=== PATIENT | male | born 1960 | race Two or more races ===

== ENCOUNTER 2018-10-11 11:26 | Inpatient (IN) | payer MEDICAID ==
[~2018-10-11] VITALS: Ht 167.6 cm; Wt 72.6 kg
[2018-10-11 11:31] VITALS: Ht 167.6 cm; Wt 72.6 kg
--- NOTE | 2018-10-11 11:38 | NUR ---
PT PLACED IN ROOM 14 FOR EVAL.
--- NOTE | 2018-10-11 11:45 | NUR ---
MSE BY DR. CORREA. PT C/O ABD PAIN X 8 MONTHS, WORSE X 1 DAY, GENERALIZED SHARP CONSTANT PAIN. PT WAS SEEN @ [facility] & HAD EGD 02/11/18 & WAS RE[place] [facility] [place] BOWEL OBSTRUCTION. PT HAS ALSO HAD A COLONOSCOPY & WAS DX W/ DIVERTICULOSIS. PT IS ICELANDIC SPEAKING ONLY. PT STATES HAS VOMITED 7 TIMES IN PAST 24 HOURS, PT HAS HAD SMALL BM BUT STILL FEELS LIKE HE NEEDS TO POOP. NO DISTRESS.
[2018-10-11 11:59] LABS: microscopic required? NO
--- NOTE | 2018-10-11 12:06 | NUR ---
12-LEAD EKG DONE BY RAMAKRISHNA GARCIA.
[2018-10-11 12:15] LABS: CALCIUM 9.1 mg/dL (8.5-10.1); CARBON DIOXIDE 26.3 mmol/L (21-32); CHLORIDE SERUM 100 mmol/L (98-107); CREATININE SERUM 1.1 mg/dL (0.7-1.3); GFR1 > 60 mL/min; GLUCOSE SERUM 115 mg/dL (74-106); POTASSIUM SERUM 4.4 mmol/L (3.5-5.1); SODIUM SERUM 136 mmol/L (136-145)
--- NOTE | 2018-10-11 12:15 | NUR ---
IV BEGUN; FLUIDS BEGUN ORDERED.
[2018-10-11 12:18] LABS: ALBUMIN 3.9 g/dL (3.4-5.0); ALKALINE PHOSPHATASE 53 U/L (46-116); ALT/SGPT 39 U/L (16-63); AST/SGOT 27 U/L (15-37); BILIRUBIN TOTAL 0.68 mg/dL (0.20-1.00); HDL CHOLESTEROL 59 mg/dL (40-60); LIPASE 97 IU/L (73-393); TOTAL PROTEIN, SERUM 7.1 g/dL (6.4-8.2); TRIGLYCERIDES 68 mg/dL (<150)
[2018-10-11 12:20] LABS: BASOPHIL % 0.2 % (0-2); PLATELET COUNT 217 x10^3mcL (130-400)
[2018-10-11 12:24] LABS: CHOLESTEROL 211 mg/dL (<200); CHOLESTEROL/HDL RATIO 3.6
[2018-10-11 12:27] LABS: UA SPECIFIC GRAVITY 1.015 (1.005-1.035); urine erythrocyte NEGATIVE (NEGATIVE)
[2018-10-11 12:30] LABS: FREE T4 0.94 ng/dL (0.76-1.46); FREE THYROXINE INDEX 2.7 ug/dL (1.4-4.5); T4(THYROXINE) 7.2 ug/dL (4.7-13.3)
--- NOTE | 2018-10-11 12:30 | NUR ---
TO CT VIA W/C.
[2018-10-11 13:09] LABS: T3 TOTAL 0.86 ng/mL
--- NOTE | 2018-10-11 15:15 | NUR ---
XRAY AT BEDSIDE FOR NGT PLACEMENT
[2018-10-11 15:42] LABS: MAGNESIUM 2.3 mg/dL (1.8-2.4); PHOSPHOROUS 3.8 mg/dL (2.5-4.9)
--- NOTE | 2018-10-11 16:07 | NUR ---
PT ADMIT TO MS GAVE REPORT TO CHERI
[2018-10-11 16:32] VITALS: BP 126/75
--- NOTE | 2018-10-11 16:42 | NUR ---
RECEIVED PT FROM ER. PT ADMIT FOR BOWEL OBSTRUCTION. PT IS A/O X4, VERBAL RESPONSIVE, ABLE TO TELL WHAT HE NEEDS. LUNG SOUND CLEAR BILATERAL, NO COUGH, NO SOB, PT DENY ANY CHEST PAIN OR DISCOMFORT, BOWEL SOUND PRESENT ALL 4 QUADRANTS, NO DISTENTION, PT C/O MILD ABD PAIN AND DENY ANY N/V AT THIS MOMENT. PT HAS NG TUBE AT RIGHT NARE. HOB IS ELEVATED, PEDAL PULSE PRESENT BOTH FEET, NO EDEMA, IV AT RIGHT AC, NO LEAKING, NO INFILTRATION. ALL ADLS ASSIST, ALL NEED MET, CALL LIGHT IN REACH, WILL CONTINUE TO MONITOR.
--- NOTE | 2018-10-11 17:15 | NUR ---
ASSUMED CARE FR SABINE RN.PT AAO X4.R ANTHONY WITH NGT TO LIS.DENIES ANY PAIN AT THE MOMENT.CALL LIGHT WITHIN REACH.WILL CONTINUE TO MONITOR PT.
--- NOTE | 2018-10-11 17:40 | NUR ---
WENT TO VERIFY PLACEMENT IF IT'S OK TO DO THE SMALL BOWEL THRU,, CONFIRMED OK TO ACCESS NGT.RADIOLOGY AT BEDSIDE.RN PUT THE DYE THRU NGT. PER X-RAY TECH WILL COME EVERY 15 MINS TO TAKE PICTURES.
--- NOTE | 2018-10-11 18:28 | NUR ---
NO SIGNIFICANT CHANGE NOTED.WILL ENDORSE TO NEXT SHIFT.
--- NOTE | 2018-10-11 19:50 | NUR ---
RECEIVED REPORT FROM DAY SHIFT RN. NO SOB ON ROOM AIR. NO C/O PAIN AT THIS TIME. NO DISTRESS NOTED. NGT TO RIGHT NARE, CLAMPED. IV TO RAC, NS INFUSING. SAFETY MEASURES IN PLACE. BED IN LOWEST POSITION. SIDE RAILS UP X2. INSTRUCTED PT TO USE THE CALL LIGHT FOR ASSISTANCE. CALL LIGHT WITHIN REACH.
[2018-10-11 21:12] VITALS: BP 117/67
--- NOTE | 2018-10-12 | NUR ---
SMALL BOWEL FOLLOW THROUGH DONE. NGT TO LOW INTERMITTENT SUCTION.
--- NOTE | 2018-10-12 01:43 | NUR ---
PT C/O ABDOMINAL CRAMPING PAIN 11/25. MEDICATED WITH TORADOL.
--- NOTE | 2018-10-12 03:50 | NUR ---
PT STANDING BY THE NURSES' STATION. ASKED PT IF HE WANTS ATIVAN FOR ANXIETY. PT REFUSED. PT STATES HE IS FEELING OK, JUST WANTED SOMEONE TO TALK TO.
--- NOTE | 2018-10-12 05:25 | NUR ---
PT STATES HE DOES NOT WANT THE IV FLUIDS. 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 DISCONNECTED THE IV. DR FELDER MADE AWARE.
[2018-10-12 05:26] VITALS: BP 123/80
--- NOTE | 2018-10-12 05:30 | NUR ---
PT CHANGED HIS MIND AND NOW WANTS THE IV FLUIDS. IV RECONNECTED. DR FELDER AWARE.
--- NOTE | 2018-10-12 06:46 | NUR ---
PT SLEPT IN INTERVALS THROUGHOUT SHIFT. NO SOB ON ROOM AIR. NO C/O PAIN AT THIS TIME. NG TUBE TO RIGHT NARE, LOW INTERMITTENT SUCTION. 450 ML OF DARK BROWN OUTPUT. SAFETY MEASURES MAINTAINED. CALL LIGHT WITHIN REACH. WILL ENDORSE CONTINUITY OF CARE TO ONCOMING RN.
[2018-10-12 06:58] LABS: BASOPHIL % 0.2 % (0-2); PLATELET COUNT 182 x10^3mcL (130-400); RED CELL DISTRIBUTION WIDTH 13.2 % (11.5-14.5)
[2018-10-12 07:18] LABS: CALCIUM 8.4 mg/dL (8.5-10.1); CHLORIDE SERUM 109 mmol/L (98-107); GFR1 > 60 mL/min; GLUCOSE SERUM 90 mg/dL (74-106); POTASSIUM SERUM 3.9 mmol/L (3.5-5.1); SODIUM SERUM 143 mmol/L (136-145)
--- NOTE | 2018-10-12 07:20 | NUR ---
RECEIVED PT FROM [facility]. PT FOUND RESTING IN BED WITH BOTH EYES CLOSED. NO S/S OF ACUTE DISTRESS. NO SOB ON ROOM AIR. REPORTS MILD ABD. PAIN, DESCRIBES ACHING, RATES 3/10, DECLINED TO PAIN MEDICATION. REPORTS TOLERABLE AT THIS TIME. DENIES N/V. REPORTS MULTIPLE LOOSE STOOLS DURING NIGHT. VOIDS FREELY. DENIES CHEST PAIN. NGT IN TACT TO RIGHT NARE. DRAINING BROWN FLUID TO LOW-INTERMITTENT SUCTION. OUTPUT 100CC IN CANISTER. IV WNL TO RAC, NO REDNESS, NO SWELLING, NO INFILTRATION. PATENT AND FLUSHES WELL. PT HAS BUMP TO HEAD, PT STATES, "IT'S A PIMPLE, I'VE HAD IT FOR ONE YEAR", DENIES PAIN TO BUMB, SKIN WARM, DRY, INTACT, COLOR NORMAL FOR ETHNICITY. ABD. SOFT, FLAT, ACTIVE X4. BED IN LOW POSITION. CALL LIGHT WITHIN REACH. WILL CONT. TO MONITOR.
[2018-10-12 10:29] VITALS: BP 123/76; BP 148/77
--- NOTE | 2018-10-12 10:40 | NUR ---
PT RESTING IN BED WITH BOTH EYES CLOSED. NO S/S OF ACUTE DISTRESS. NO N/V. NGT IN TACT WITH BROWN DRAINAGE, TO LOW INTERMITTENT SUCTION. REPORTS MILD ABD. PAIN, RATES 3/10, TOLERABLE, DECLINED TO PAIN MEDICATION. NO SOB ON ROOM AIR. NO CHEST PAIN. CALM/COOPERATIVE. BED IN LOW POSITION. CALL LIGHT WITHIN REACH. WILL CONT. TO MONITOR.
--- NOTE | 2018-10-12 11:15 | NUR ---
LATE ENTRY: NGT REMOVED PER DR. KAMARA ORDER BY [facility] STUDENT YANET WITH INSTRUCTOR. PT TOLERATED PROCEDURE WELL. NO N/V. NO SOB ON ROOM AIR. NO CHEST PAIN. CALM/COOPERATIVE. OUTPUT FROM NGT 375CC BROWN. IV WNL, IV FLUIDS FLOWING. BED IN LOW POSITION. CALL LIGHT WITHIN REACH. WILL CONT. TO MONITOR.
[2018-10-12] MEDS ORDERED: PRI20 PO (13:26)
[2018-10-12] MEDS ORDERED: ONDANSETRON4 M3 PO (13:26)
--- NOTE | 2018-10-12 13:42 | NUR ---
PT SITTING IN CHAIR AT SIDE OF BED. AA/OX4. TOLERATED FULL LIQUID DIET WELL. DENIES N/V. NO ABD PAIN AT THIS TIME. NO SOB ON ROOM AIR. CALM/COOPERATIVE. IV WNL, IV FLUIDS FLOWING. CALL LIGHT WITHIN REACH. WILL CONT. TO MONITOR.
[2018-10-12 14:02] VITALS: BP 123/76
--- NOTE | 2018-10-12 15:09 | NUR ---
PT BEING DISCHARGED TO HOME. AWAKE, ALERT, ORIENTED X4. NO S/S OF ACUTE DISTRESS. DENIES ABD. PAIN. NO N/V. NO BARNES. NO CHILLS. NO FEVER. DENIES PAIN. PT PASSING GAS. BM X3 TODAY. LOOSE. TOLERATING FULL LIQUID DIET WELL. DISCHARGE EDUCATION PROVIDED TO PATIENT. INSTRUCTED TO FOLLOW UP WITH PCP WITHIN ONE WEEK. PT VERBALIZED UNDERSTANDING. PRESCRIPTION AND WORK NOTE PROVIDED TO PATIENT. IV REMOVED FROM RAC, CATHETER IN TACT. PRESSURE APPLIED. SITE WNL. BELONGINGS WITH PATIENT. ESCORTED TO DISCHARGE LOBBY BY [facility]. AMBULATORY WITH FULL ROM, GAIT STEADY.
== END 2018-10-12 15:15 | disposition home or self-care (01) | DRG 244 ==
LOC: ED 11:26 → MU 14:54
PROVIDERS: Specialist; ADMIT Internal Medicine
DX: K57.90 Diverticulosis of intestine, part unspecified, without perforation or abscess without bleeding (principal); K56.7 Ileus, unspecified; E78.5 Hyperlipidemia, unspecified; Z68.25 Body mass index [BMI] 25.0-25.9, adult
CPT/HCPCS: 83880; 84439; A9698; J0694; J1885; J7030; Q0092; Q9967

== ENCOUNTER 2018-11-10 07:47 | Emergency (ER) | payer MEDICAID ==
[~2018-11-10] VITALS: Ht 167.6 cm; Wt 69.4 kg
[~2018-11-10 07:47] MED LIST: ONDANSETRON4 M3 PO; PRI20 PO
[2018-11-10 07:59] VITALS: Ht 167.6 cm; Wt 69.4 kg
[2018-11-10 08:49] LABS: BASOPHIL % 0.3 % (0-2); PLATELET COUNT 158 x10^3mcL (130-400); RED CELL DISTRIBUTION WIDTH 13.6 % (11.5-14.5)
[2018-11-10 08:57] LABS: CALCIUM 9.2 mg/dL (8.5-10.1); CARBON DIOXIDE 26.6 mmol/L (21-32); CHLORIDE SERUM 103 mmol/L (98-107); GFR1 > 60 mL/min; GLUCOSE SERUM 118 mg/dL (74-106); POTASSIUM SERUM 3.9 mmol/L (3.5-5.1); SODIUM SERUM 139 mmol/L (136-145)
[2018-11-10 09:02] LABS: ALBUMIN 4.1 g/dL (3.4-5.0); ALKALINE PHOSPHATASE 60 U/L (46-116); ALT/SGPT 31 U/L (16-63); AST/SGOT 25 U/L (15-37); BILIRUBIN TOTAL 0.5 mg/dL (0.20-1.00); LIPASE 85 IU/L (73-393); TOTAL PROTEIN, SERUM 7.6 g/dL (6.4-8.2)
[2018-11-10 09:10] LABS: microscopic required? YES; urine erythrocyte NEGATIVE (NEGATIVE)
[2018-11-10 14:36] VITALS: BP 113/89
== END 2018-11-10 14:36 | disposition home or self-care (01) ==
LOC: ED 07:47
PROVIDERS: Emergency Medicine
DX: K56.7 Ileus, unspecified (principal); R10.84 Generalized abdominal pain; Z87.19 Personal history of other diseases of the digestive system
CPT/HCPCS: A9698; J1885; J2405; J7030; Q9967

== ENCOUNTER 2018-11-11 16:31 | Emergency (ER) | payer MEDICAID ==
[~2018-11-11] VITALS: Ht 167.6 cm; Wt 71.7 kg
[2018-11-11 16:41] VITALS: Ht 167.6 cm; Wt 71.7 kg
[2018-11-11 17:53] VITALS: BP 121/72
== END 2018-11-11 17:53 | disposition home or self-care (01) ==
LOC: ED 16:31
DX: K56.7 Ileus, unspecified (principal)

== ENCOUNTER 2019-02-24 10:06 | Inpatient (IN) | payer MEDICAID ==
[~2019-02-24] VITALS: Ht 167.6 cm; Wt 73.7 kg
[2019-02-24 10:12] VITALS: Ht 167.6 cm; Wt 73.7 kg
--- NOTE | 2019-02-24 10:19 | NUR ---
PER PT HE HAS HAD GENERALIZED ABDOMINAL PAIN FOR ONE DAY. PT STS THAT HIS LAST BOWEL MOVEMENT TWO HOURS AGO. PT STS THAT HE HAS SOME NAUSEA BUT NOT VOMITING. UPON PALPATION PT HAS TENDERNESS TO ALL 4 QUAD. PT DENIES ANY FEVERS, BODY ACHES. PT STS THAT HE FEELS THAT HE HAS PRESSURE IN HIS STOMACH. PT IS ALERT AND ORIENTED, SEPAKING IN CLEAR AND FULL SENTENCES. PT DENIES ANY BLOOD IN STOOL OR URINE. VSS. WILL CONTINUE TO MONITOR. RESP E/U/
[2019-02-24 10:30] LABS: microscopic required? NO
--- NOTE | 2019-02-24 10:36 | NUR ---
PT TAKEN TO XRAY BY WHEELCHAIR.
[2019-02-24 10:41] LABS: BASOPHIL % 0.2 % (0-2); PLATELET COUNT 234 x10^3mcL (130-400)
[2019-02-24 10:42] LABS: UA SPECIFIC GRAVITY 1.015 (1.005-1.035); urine erythrocyte NEGATIVE (NEGATIVE)
[2019-02-24 10:42] LABS: RED CELL DISTRIBUTION WIDTH 17.2 % (11.5-14.5)
[2019-02-24 10:55] LABS: CALCIUM 9.7 mg/dL (8.5-10.1); CARBON DIOXIDE 23.6 mmol/L (21-32); CHLORIDE SERUM 101 mmol/L (98-107); GFR1 > 60 mL/min; GLUCOSE SERUM 137 mg/dL (74-106); POTASSIUM SERUM 4.4 mmol/L (3.5-5.1); SODIUM SERUM 137 mmol/L (136-145)
--- NOTE | 2019-02-24 11:03 | NUR ---
PT RETURNED FROM CT. PT AMBULATED TO [facility] WITH STEADY GAIT. NO DISTRESS NOTED. PT STS ABDOMINAL PAIN IS NOW 09/25. DR. STEVENS INFORMED. VSS. RESP E/U. WILL CONTINUE TO MONITOR.
--- NOTE | 2019-02-24 11:05 | NUR ---
I RECEIVED A CALL REGARDING THE CR FINDINGS I INFORMED DR STEVENS HE IS AWARE OF BOWEL OBSTRUCTION.
[2019-02-24 11:07] LABS: ALBUMIN 4.2 g/dL (3.4-5.0); ALKALINE PHOSPHATASE 59 U/L (46-116); ALT/SGPT 49 U/L (16-63); AST/SGOT 42 U/L (15-37); BILIRUBIN TOTAL 0.6 mg/dL (0.20-1.00); LIPASE 113 IU/L (73-393); TOTAL PROTEIN, SERUM 7.8 g/dL (6.4-8.2)
--- NOTE | 2019-02-24 11:52 | NUR ---
NG PLACEMENT LEFT NARE. PT TOLERATED WELL. KUB ORDRED FOR PALCEMENT CONFIRMATION.
[2019-02-24] MEDS ORDERED: AMITIZA8 MC1 (12:38)
--- NOTE | 2019-02-24 12:38 | NUR ---
REPORT GIVEN TO JOHANNY JUAREZ TO ASSUME CARE OF PT.
--- NOTE | 2019-02-24 13:04 | NUR ---
ADJUSTMENT OF NG. CEHST XRAY ORDRED FOR PLACEMENT. PT TOLERATED WELL. PT PLACED ON SUCTION. VSS. NO DISTRESS NOTED. WILL CONTINUE TO MONITOR.
--- NOTE | 2019-02-24 13:39 | NUR ---
RECEIVED PT FROM ED [facility]IA [facility] [facility], CAME IN DUE TO ABDOMINAL PAIN. AAOX4. DENIES HEADACHE/DIZZINESS. NO SOB NOTED, LUNG SOUNDS CTA. DENIES CHEST PAIN/PRESSURE. DENIES ABDOMINAL PAIN/NAUSEA/VOMITING/BLOATING AT THIS TIME. BOWEL SOUNDS HYPOACTIVE. ABLE TO PASS GAS, HAD FORMED BM TODAY. ABDOMEN IS SOFT BUT DISTENDED. W/ LEFT NARE, NGT (CLAMPED). VOIDS. IV SITE PATENT AND INTACT. SIDE RAILS UPX2. CALL LIGHT ON REACH. PRIMARY NURSE JOHANNY AT BEDSIDE FOR CONTINUITY OF CARE
[2019-02-24 14:01] VITALS: BP 116/75
--- NOTE | 2019-02-24 14:32 | NUR ---
NASIR JIMENEZ NOTIFIED THAT NGT THAT WAS PLACED IN ER WAS STILL NOT IN PLACE. PERMISSION GIVEN BY TONY TO INSERT NEW NGT AND ORDER KUB TO CONFIRM PLACEMENT. NGT PULLED OUT AND NEW NGT REINSERTED TO RIGHT NARE. PATIENT TOLERATED WELL. KUB ORDERED. PATIENT APPEARS TO BE RESTING WELL IN BED AT THIS TIME. INSTRUCTED TO USE CALL LIGHT FOR ASSIST. WILL CONTINUE TO MONITOR. PATIENT DENIES ANY N/V OR PAIN.
--- NOTE | 2019-02-24 16:00 | NUR ---
KUB RESULTS RECEIVED. NASIR JIMENEZ NOTIFIED. NEW ORDER RECEIVED TO PLACE NGT TO LOW INTERMITTENT SUCTION.
[2019-02-24 16:41] VITALS: BP 117/72
--- NOTE | 2019-02-24 17:46 | NUR ---
DR COLEMAN REQUESTING THAT AISHA ABRASIVE BAND WINDER BE MADE AWARE THAT PATIENT MAY HAVE A ALCOHOL HX, AND TO ASK DESIREEE IF A ETOH PROTOCOL NEEDS TO BE STARTED. AISHA ABRASIVE BAND WINDER CALLED AND PER AISHA BEST AT THIS TIME A ETOH PROTOCOL DOES NOT NEED TO BE STARTED, BUT WANTS PATIENT TO BE WATCHED FOR ANY TREMORS OR OTHER WITHDRAWL SYMPTOMS.
--- NOTE | 2019-02-24 18:00 | NUR ---
I HAVE REVIEWED THE DATA COLLECTION BY CAR DESIGNER (NAME): ENTERED ON (DATE/TIME): I CONCUR WITH THE DATA AND ANY EXCEPTIONS OR COMMENTS ARE LISTED BELOW: PATIENT'S PLAN OF CARE WAS DISCUSSED AND REVIEWED WITH CAR DESIGNER:JOHANNY YANG
--- NOTE | 2019-02-24 18:18 | NUR ---
PATIENT REMAINS IN BED NGT TO LOW INTERMITTENT SUCTION. DR COLEMAN WAS INTO SEE PATIENT. PATIENT C/O HAVING MILD ABD PAIN 1-3 ON THE PAIN SCALE. MEDICATED WITH TORADOL IV BY ALEX JUAREZ AT THIS TIME. WILL MONITOR FOR EFFECT. PATIENT REMAINS NPO. CALL LIGHT WITHIN REACH.
--- NOTE | 2019-02-24 18:19 | NUR ---
PT C/O PAIN TO ABD AT 4/10, MEDICATED WITH NORCO PO PER EMAR. WILL CONT TO MONITOR.
--- NOTE | 2019-02-24 19:05 | NUR ---
CARE ASSUMED FROM OUTGOING SHEET CUTTING OPERATOR. PT RESTING COMFORTABLY IN BED. NO ACUTE DISTRESS NOTED. EVEN AND UNLABORED RESPIRATIONS ON RA. MEDSURG PT. ABD PAIN RESOLVING AT TIME, MEDICATION EFFECTIVE. NGT TO INTERMITTENT SUCTION, PATENT AND INTACT. IV PATENT AND INTACT RUNNING FLUIDS PER EMAR. BED IN LOWEST POSITION. SIDE RAILS UPX2. CALL LIGHT WITHIN REACH. WILL CONTINUE TO MONITOR.
[2019-02-24 20:26] VITALS: BP 117/65
--- NOTE | 2019-02-25 00:22 | NUR ---
PT RESTING COMFORTABLY IN BED. NO ACUTE DISTRESS NOTED. EVEN AND UNLABORED RESPIRATIONS ON RA. IV PATENT AND INTACT RUNNING FLUIDS PER EMAR. NGT PATENT AND INTACT TO LIS. NO C/O OF ABD PAIN AT THIS TIME. BED IN LOWEST POSITION. SIDE RAILS UPX2. CALL LIGHT WITHIN REACH. WILL CONTINUE TO MONITOR.
[2019-02-25 04:45] VITALS: BP 122/74
[2019-02-25 06:22] LABS: BASOPHIL % 0.4 % (0-2); PLATELET COUNT 185 x10^3mcL (130-400)
--- NOTE | 2019-02-25 06:23 | NUR ---
PT SLEPT COMFORTABLY IN INTERVALS THROUGHOUT THE SHIFT. NO ACUTE CHANGES NOTED. EVEN AND UNLABORED RESPIRATIONS ON RA. NGT IN PLACE TO LIS, 25ML OUTPUT NOTED. PT C/O DISCOMFORT DUE TO NGT, NO C/O OF ABD PAIN DURING THE SHIFT. IV PATENT AND INTACT RUNNING FLUIDS PER EMAR. ALL NEEDS TENDED TO AND MET. ALL SCHEDULED MEDICATIONS GIVEN. BED IN LOWEST POSITION. SIDE RAILS UXP2. CALL LIGHT WITHIN REACH. WILL ENDORSE TO ONCOMING SHIFT.
[2019-02-25 06:24] LABS: RED CELL DISTRIBUTION WIDTH 17.3 % (11.5-14.5)
[2019-02-25 06:45] LABS: CALCIUM 8.4 mg/dL (8.5-10.1); CARBON DIOXIDE 28.4 mmol/L (21-32); CHLORIDE SERUM 108 mmol/L (98-107); CREATININE SERUM 1.2 mg/dL (0.7-1.3); GFR1 > 60 mL/min; GLUCOSE SERUM 105 mg/dL (74-106); POTASSIUM SERUM 4.6 mmol/L (3.5-5.1); SODIUM SERUM 142 mmol/L (136-145)
--- NOTE | 2019-02-25 07:50 | NUR ---
OX4. NO SOB AT RM AIR. DENIES CP; REPORTS EPIG PAIN 1/10, TOLERABLE AND REQUIRE NO MED AT THIS TIME, DENIES N/V OR DIARRHEA. NGT TO LIS, MINIMAL CLEAR DRAIN ON THE TUBE, NOTED ABOUT 150 ML. WHITE/CLOUDY DRAIN ON THE CONTAINER. NGT IS SECURED. IVF D5NS AT 80ML/HR INFUSING VIA RAC; SITE PATENT AND WITHOUT INFILTRATION. NPO WITH VERBAL UNDERSTANDING. NSG ASSESSMENT DONE; WILL CONTINUE TO MONITOR STATUS.
[2019-02-25 09:01] VITALS: BP 123/79
--- NOTE | 2019-02-25 10:12 | NUR ---
NGT TO RT ANTHONY DC'D PER DR. COLEMAN ORDER; DRAIN IS ONLY NOTED ON THE TUBING WHICH IS MINIMAL AND CLEAR. OFFERD SIPS OF WATER AND ICE CHIPS PO; PT TOLERATED WELL. PT ALSO ENCOURAGE TO AMBULATE. WITH VERBAL UNDERSTANDING.
--- NOTE | 2019-02-25 13:30 | NUR ---
PT IS AMBULATING IN THE HALLWAY; TOLERATING ACTIVITY; AISHA HAS BEEN MADE AWARE OF DR. COLEMAN'S ORDER TO DC NGT MAY HAVE SML AMOUNTS OF CLEARS IF PT TOLERATES ICE CHIPS/SIPS.
[2019-02-25 17:40] VITALS: BP 103/70
--- NOTE | 2019-02-25 18:04 | NUR ---
PT IS AMBULATING AND DENIES ABD PAIN, N/V. TOLERATING ICE CHIPS AND SIPS OF WATER. NO NEW ACUTE CHANGES IN STATUS.
--- NOTE | 2019-02-25 19:19 | NUR ---
AWAKE AND ALERT, ORIENTED TO NAME, PLACE, TIME AND SITUATION. SPEECH CLEAR AND APPROPRIATE. WATCHING TV AT THIS TIME. DENIES HAVING ABD PAIN OR NAUSEA. HAS BEEN TOLERATING ICE CHIPS AND SMALL SIPS OF WATER WELL. HAS BEEN AMBULATING IN HALLWAY. ACTIVE BOWEL SOUNDS. IVF OF D5 NS INFUSING WELL
--- NOTE | 2019-02-25 19:45 | NUR ---
INFORMED DR. MELVIN PT HAS BEEN TOLERATING ICE CHIPS AND SIPS OF CLEAR LIQUID.
[2019-02-25 19:53] VITALS: BP 110/65
--- NOTE | 2019-02-25 20:39 | NUR ---
ENCOURAGED TO AMBULATE. STATED HAS BEEN PASSING GAS.
--- NOTE | 2019-02-26 01:10 | NUR ---
EYES CLOSED, BREATHING EVEN AND UNLABORED ON ROOM AIR. CALL LIGHT WITHIN EASY REACH. IVF INFUSING WELL.
[2019-02-26 04:35] VITALS: BP 113/69
--- NOTE | 2019-02-26 06:28 | NUR ---
EYES CLOSED, EASILY AWAKENED. SLEPT THROUGH MOST OF SHIFT. NOTED NEW ORDER FOR CLEAR LIQUID DIET. NO COMPLAINTS OF ABD PAIN OR NAUSEA DURING SHIFT. IVF INFUSING WELL.
[2019-02-26 06:45] LABS: CALCIUM 8.7 mg/dL (8.5-10.1); CARBON DIOXIDE 28.6 mmol/L (21-32); CHLORIDE SERUM 109 mmol/L (98-107); CREATININE SERUM 1.1 mg/dL (0.7-1.3); GFR1 > 60 mL/min; GLUCOSE SERUM 97 mg/dL (74-106); POTASSIUM SERUM 4.6 mmol/L (3.5-5.1); SODIUM SERUM 143 mmol/L (136-145)
[2019-02-26 07:10] LABS: BASOPHIL % 0.6 % (0-2); PLATELET COUNT 175 x10^3mcL (130-400)
[2019-02-26 07:11] LABS: RED CELL DISTRIBUTION WIDTH 17.3 % (11.5-14.5)
--- NOTE | 2019-02-26 07:12 | NUR ---
EYES CLOSED, EASILY AWAKENED. BREATHING UNLABORED. ENDORSED TO NURSE ANITHA
--- NOTE | 2019-02-26 07:20 | NUR ---
RECEIVED PT FROM CARLENE RN. PT AA/OX4. SPEAKS MALAY. NO S/S OF ACUTE DISTRESS. NO CHEST PAIN. MED-SURG. NO SOB ON ROOM AIR. DENIES ABD. PAIN. DENIES N/V. REPORTS TOLERATING CLEAR LIQUID DIET WELL. REPORTS PASSING GAS RECTALLY AND ORALLY. VOIDS FREELY. PT ENCOURAGED TO AMBULATE PER PHYSICIAN ORDER. PT VERBALIZED UNDERSTANDING. IV WNL TO RAC, NO REDNESS, NO SWELLING, NO INFILTRATION. PATENT AND FLUSHES WELL. IV FLUIDS FLOWING. BED IN LOW POSITION. CALL LIGHT WITHIN REACH. SIDE RAILS UP X2. INSTRUCTED TO USE CALL LIGHT TO CALL FOR ASSISTANCE PRN. VERBALIZED UNDERSTANDING. WILL CONTINUE TO MONITOR.
[2019-02-26 07:50] VITALS: BP 125/68
--- NOTE | 2019-02-26 09:28 | NUR ---
PT AMBULATING IN HALLWAYS. TOLERATING ACTIVITY WELL. NO S/S OF ACUTE DISTRESS. NO S/S OF PAIN. NO ABD. PAIN. NO N/V. IV FLUIDS FLOWING. WILL CONTINUE TO MONITOR.
[2019-02-26 13:06] VITALS: BP 125/68
--- NOTE | 2019-02-26 14:44 | NUR ---
PT TAKEN TO LOBBY BY JORDAN SALGUERO. PT AWAKE, ALERT, ORIENTED X4. NO S/S OF ACUTE DISTRESS. AMBULATORY WITH FULL ROM, GAIT STEADY. DENIES ABD. PAIN. HAD BM X 2 TODAY, BROWN/FORMED. TOLERATED REGULAR DIET WELL FOR LUNCH. DENIES N/V. NO ABD. PAIN AFTER EATING. PASSING GAS. NO SOB ON ROOM AIR. NO CHEST PAIN. DISCHARGE EDUCATION PROVIDED TO PATIENT. INSTRUCTED TO FOLLOW UP WITH PCP WITHIN ONE WEEK. PT VERBALIZED UNDERSTANDING. IV WNL TO RAC, IV REMOVED, CATHETER IN TACT. PRESSURE APPLIED. BELONGINGS WITH PATIENT.
== END 2019-02-26 14:44 | disposition home or self-care (01) | DRG 247 ==
LOC: ED 10:06 → MU 11:35
PROVIDERS: Emergency Medicine; ADMIT Internal Medicine
DX: K56.609 Unspecified intestinal obstruction, unspecified as to partial versus complete obstruction (principal); Z68.25 Body mass index [BMI] 25.0-25.9, adult
CPT/HCPCS: G0378; J1885; J2405; J3010; J3490; J7030; J7042; Q0092

== ENCOUNTER 2019-04-04 10:05 | Inpatient (IN) | payer MEDICAID ==
[~2019-04-04] VITALS: Ht 172.7 cm; Wt 71.7 kg
[~2019-04-04 10:05] MED LIST changes: +AMITIZA8 MC1
[2019-04-04 10:07] VITALS: Ht 172.7 cm; Wt 71.7 kg
--- NOTE | 2019-04-04 10:10 | NUR ---
PLACED IN BED 4 FOR EVAL.
--- NOTE | 2019-04-04 10:14 | NUR ---
PT COMESD TO ER WITH C/O GENERALIZED ABDOMINAL PAIN WITH NAUSEA AFTER EATING FISH TACOS YESTERDAY. STATES HE'S BEEN HAVING SIMILIAR ISSUES FOR THELAST MONTH AND HAS BEEN COMING HERE, STATES HE'S BEEN TOLD HE HAS AN OBSTRUCTION. LAST BM THIS AM, REGULAR. POSITIVE DYSURIA. DENIES HEMATURIA, FEVERS, CHILLS. PT INFORMED TO PROVIDE URINESPECIMEN. WILL CONT TOMONITOR.
--- NOTE | 2019-04-04 10:59 | NUR ---
DR CHAVES IN ROOM FOR EXAM
[2019-04-04 11:18] LABS: BASOPHIL % 0.2 % (0-2); PLATELET COUNT 193 x10^3mcL (130-400)
[2019-04-04 11:25] LABS: CALCIUM 8.7 mg/dL (8.5-10.1); CARBON DIOXIDE 25.4 mmol/L (21-32); CHLORIDE SERUM 105 mmol/L (98-107); GFR1 > 60 mL/min; GLUCOSE SERUM 109 mg/dL (74-106); SODIUM SERUM 141 mmol/L (136-145)
--- NOTE | 2019-04-04 11:25 | NUR ---
MEDICATED ORDERED, CALL LIGHT STORMY CHRISTIANSON. SAFETY PRECAUTIONS IN PLACE.
--- NOTE | 2019-04-04 11:25 | NUR ---
PT GOING TO CT SCAN VIA [facility].
[2019-04-04 11:29] LABS: ALBUMIN 3.9 g/dL (3.4-5.0); ALKALINE PHOSPHATASE 65 U/L (46-116); ALT/SGPT 28 U/L (16-63); AST/SGOT 25 U/L (15-37); BILIRUBIN TOTAL 0.5 mg/dL (0.20-1.00); LIPASE 74 IU/L (73-393); TOTAL PROTEIN, SERUM 7.1 g/dL (6.4-8.2)
[2019-04-04 11:30] LABS: RED CELL DISTRIBUTION WIDTH 18.3 % (11.5-14.5)
--- NOTE | 2019-04-04 13:00 | NUR ---
PT WITH EYEW CLOSED, IN NAD. RESP EVEN AND UNLABORED, ON RA @96%. WAITING FOR DIPSO. NO NAUSEA OR VOMITING WHILE HERE IN ER. CURRENTLY DENIES ANY PAIN AT THIS TIME.
--- NOTE | 2019-04-04 13:28 | NUR ---
REPORT GIVEN TO DARLIN RN, UPDATED ON STATUS, LABS AND VITALS. PT STABLE FOR TRANSFER AT THIS TIME. PT DENIES ANY ABDOMINAL PAIN AT THIS TIME AND STATES HE'S HUNGRY. DOES NOT WANT NGT AT THIS TIME. ER MADE AWARE.
[2019-04-04 14:33] VITALS: BP 126/80
--- NOTE | 2019-04-04 14:35 | NUR ---
RECEIVED PT FROM ED [facility]IA [facility]. ORIENTED PT TO ROOM AND SURROUNDINGS. IV NOTED TO LAC PATENT AND INTACT. INSTRUCTED PT ON THE USE OF CALL LIGHT FOR ASSISTANCE. BED IN LOWEST POSITION AND SIDE RAILS UPX2
--- NOTE | 2019-04-04 16:29 | NUR ---
TAKE OVER THIS PATIENT FROM RN SURU. SEEN RESTING WITH EYES CLOSED. BREATHING E/U ON ROOM AIR. IVF D5 1/2NS AT 100ML/HR TO LAC INFUSING WELL. CALL LIGHT NOTED PLACED WITHIN EASY REACH, SIDERAILS UP X2.
[2019-04-04 16:35] VITALS: BP 113/68
--- NOTE | 2019-04-04 18:22 | NUR ---
DENIES PAIN AT THIS TIME. ABDN SOFT AND FLAT STATED HAD LARGE BM THIS AM. PLAN OF CARE DISCUSSED, UPDATED TO PATIENT AND HIS FAMILY AT BEDSIDE. KEPT NPO.
--- NOTE | 2019-04-04 19:10 | NUR ---
RECEIVED PT LAYING IN BED, NO ACUTE DISTRESS OBSERVED, DENIES PAIN OR DISCOMFORT AT THIS TIME. ABD ROUND AND SOFT, NONTENDER WITH ACTIVE BOWEL SOUNDS, DENIES N/V/D, LAST BM WAS EARLIER THIS MORNING, PT C/O INTERMITTENT ABD PAIN. AA/OX4, ABLE TO MAKE NEEDS KNOWN, SPEECH CLEAR AND APPROPRIATE. MED-SURG, NO TELE, NO CP. PULSES PALPABLE AND EQUAL THROUGHOUT, NO EDEMA. BREATHING ON RA, EVEN AND UNLABORED, NO SOB OR DYSPNEA OBSERVED. VOIDS URINE FREELY WITH BRP. AMBULATORY AND ABLE TO REPOSITION SELF IN BED. IV TO LAC DRY, PATENT, INTACT, AND INFUSING IVF WELL, NO S&S PHLEBITIS OR INFILTRATION NOTED. COMFORT AND SAFETY MEASURES IN PLACE. ALL NEEDS ASSESSED AND ATTENDED TO. CALL LIGHT WITHIN REACH. WILL CONTINUE TO MONITOR
[2019-04-04 20:43] VITALS: BP 111/64
--- NOTE | 2019-04-05 05:16 | NUR ---
NO SIGNIFICANT CHANGES TO REPORT, PT COMPLIED WITH NURSING CARE TRHOUGHOUT THE SHIFT WITH NO ACUTE EVENTS OVERNIGHT. NO ACUTE DISTRESS OBSERVED AT THIS TIME. PT LAYING IN BED, BREATHING EVEN AND UNLABORED. COMFORT AND SAFETY MEASURES MAINTAINED. ALL NEEDS ASSESSED AND ATTENDED TO. CALL LIGHT WITHIN REACH. WILL CONTINUE TO MONITOR AND ENDORSE CARE TO DAY SHIFT NURSE.
[2019-04-05 05:36] VITALS: BP 115/83
[2019-04-05 06:22] LABS: BASOPHIL % 0.5 % (0-2); PLATELET COUNT 149 x10^3mcL (130-400)
[2019-04-05 06:29] LABS: RED CELL DISTRIBUTION WIDTH 18.2 % (11.5-14.5)
[2019-04-05 06:38] LABS: CALCIUM 7.6 mg/dL (8.5-10.1); CARBON DIOXIDE 27.9 mmol/L (21-32); CHLORIDE SERUM 110 mmol/L (98-107); CREATININE SERUM 1.1 mg/dL (0.7-1.3); GFR1 > 60 mL/min; GLUCOSE SERUM 101 mg/dL (74-106); POTASSIUM SERUM 3.9 mmol/L (3.5-5.1); SODIUM SERUM 144 mmol/L (136-145)
--- NOTE | 2019-04-05 07:30 | NUR ---
RECEIVED REPORT FROM NIGHT NURSE, PT LAYING IN BED A&OX4, PT DENIES ANY PAIN AT THIS TIME, ASSESED AND DOCUMENTED. STABLE AND NO DISTRESS NOTED. SAFETY PRECAUTIONS IN PLACE, CALL LIGHT WITHIN REACH, BED IN LOW POSITION ALL QUESTIONS AND CONCERNS ADDRESSED. WILL CONTINUE TO MONITOR.
--- NOTE | 2019-04-05 07:30 | NUR ---
ORTHOPEDICS PEDIATRIC PHYSICIAN REPORT FROM PT LAYING IN BED AWAKE AND ALERT. PT IN NO APPARENT DISTRESS AT THIS TIME, PT RATES PAIN 0/10. PT INSTRUCTED TO USE CALL FOR ANY NEEDS, BED IN LOW POSITION ALL NEEDS MET AT THIS TIME.
--- NOTE | 2019-04-05 08:45 | NUR ---
PT SITTING UP IN CHAIR WATCHING TV. IN NO APPARENT DISTRESS AT THE TIME.
[2019-04-05 09:03] VITALS: BP 116/72
--- NOTE | 2019-04-05 10:00 | NUR ---
PT AMBULATING IN HALLWAY. IN NO APPARENT DISTRESS.
[2019-04-05 10:22] LABS: microscopic required? NO
[2019-04-05 10:28] LABS: urine erythrocyte NEGATIVE (NEGATIVE)
--- NOTE | 2019-04-05 11:01 | NUR ---
PT LAYING IN BED SUPINE. NO PAIN NOTED, ALL NEEDS AND CONCERNS MET AT THIS TIME.
--- NOTE | 2019-04-05 12:20 | NUR ---
PT AMBULATING IH HALLWAY. NO DISTRESS NOTED.
--- NOTE | 2019-04-05 12:23 | NUR ---
PER DR ORDER OF CLEAR LIQUID DIET GAVE APPLE JUICE AND JELLO. PT INFORMED THAT HE WILL BE STAYING OVER NIGHT FOR OBSERVATION. PT VERBALIZED UNDERSTANDING.
--- NOTE | 2019-04-05 12:45 | NUR ---
SPECIMEN PREPARATION ASSISTANT AT BEDSIDE.
--- NOTE | 2019-04-05 13:00 | NUR ---
PT SITTING UP IN BED EATING LUNCH. IN NO APPARENT PAIN. TOLERATING THE FLUID WELL.
--- NOTE | 2019-04-05 13:30 | NUR ---
GENERAL SURGEON AT BEDSIDE.
--- NOTE | 2019-04-05 14:13 | NUR ---
Discount pharmacy card and list to low cost medical clinics given to patient by Zahira.
--- NOTE | 2019-04-05 14:18 | NUR ---
PT LYING IN BED RESTING. NO DISTRESS NOTED.
--- NOTE | 2019-04-05 15:29 | NUR ---
PT AMBULATING IN HALLWAY. NO PAIN OR DISTRESS NOTED.
--- NOTE | 2019-04-05 15:45 | NUR ---
PT LAYING IN BED WITH AT BEDSIDE WATCHING TV. NO PAIN NOTED. INSTRUCTED TO USE CALL LIGHT FOR ANY NEEDS.
[2019-04-05 17:15] VITALS: BP 103/64
--- NOTE | 2019-04-05 18:19 | NUR ---
PT TOLERATED DINNER WELL. NO DISTRESS NOTED. PT LAYING IN BED WITH AT BEDSIDE. IN NO APPARENT DISTRESS.
--- NOTE | 2019-04-05 19:30 | NUR ---
RECEIVED REPORT FROM DAY SHIFT RN. PT RESTING WITH EYES CLOSED. AROUSABLE WITH VERBAL STIMULI. ORIENTED X4. NO SOB NOTED ON ROOM AIR. NO C/O N/V/PAIN AT THIS TIME. IV TO LAC, D5NS INFUSING. SAFETY MEASURES IN PLACE. BED IN LOWEST POSITION. SIDE RAILS UP X2. INSTRUCTED PT TO USE THE CALL LIGHT IF ASSISTANCE IS NEEDED. CALL LIGHT WITHIN REACH.
--- NOTE | 2019-04-05 19:31 | NUR ---
REPORT GIVEN TO NOC SHIFT NURSE AT BEDSIDE. PT LYING IN BED ASLLEP AND AROUSABLE. ALL CARE ENDORSED. IV PATENT AND INTACT RUNNING AT 100ML/HR. ALL CONCERNS AND QUESTIONS ANSWERED. NO DISTRESS NOTED.
[2019-04-05 20:42] VITALS: BP 92/57
[2019-04-06 05:25] VITALS: BP 109/63
--- NOTE | 2019-04-06 05:32 | NUR ---
PT RESTED AT LONG INTERVALS THROUGHOUT SHIFT. BREATHING EVEN AND UNLABORED ON ROOM AIR. NO C/O PAIN. NO ACUTE CHANGES NOTED. NO DISTRESS NOTED. SAFETY MEASURES MAINTAINED. ALL NEEDS ATTENDED TO. WILL ENDORSE CONTINUITY OF CARE TO DAY SHIFT RN.
--- NOTE | 2019-04-06 05:37 | NUR ---
PT RESTED AT INTERVALS DURING SHIFT. NO SOB NOTED ON ROOM AIR. ON AND OFF C/O PAIN TO SURGICAL SITE. MEDICATED PER ORDER. PT RESTING IN BED WITH EYES CLOSED AT THIS TIME. NO DISTRESS NOTED. NO C/O N/V. DENIES PASSING FLATUS. CARPIO CARE DONE. SAFETY MEASURES MAINTAINED. ALL NEEDS ATTENDED TO. WILL CONTINUE TO MONITOR AND ENDORSE CARE TO ONCOMING RN.
[2019-04-06 06:34] LABS: BASOPHIL % 0.6 % (0-2); PLATELET COUNT 143 x10^3mcL (130-400)
[2019-04-06 06:52] LABS: CALCIUM 7.5 mg/dL (8.5-10.1); CARBON DIOXIDE 27.6 mmol/L (21-32); CHLORIDE SERUM 110 mmol/L (98-107); GFR1 > 60 mL/min; GLUCOSE SERUM 94 mg/dL (74-106); SODIUM SERUM 145 mmol/L (136-145)
--- NOTE | 2019-04-06 07:15 | NUR ---
RECEIVED REPORT FROM [facility] SHIFT NURSE. PT LYING IN BED IN NO APPARENT DISTRESS. A&O X4, SPEEKS CLEALY AND ABLE TO FOLLOW COMMANDS. PT DENIES ANY PAIN OR NAUSEA AT THIS TIME. BOWEL SOUNDS ACTIVE IN ALL FOUR QUADRANTS. ABD SOFT AND FLAT NO DISTENTION NOTED. IV PATENT NO REDDNESS OR SWELLING NOTED. LUNGS CTA BILATERALLY. NO EDEMA NOTED. RADIAL AND PEDAL PULSES STRONG BILAT. SKIN INTACT. INSTRUCTED PT TO USE CALL LIGHT FOR ASSISTANCE. BED IN LOW POSITION, CALL LIGHT WITHIN REACH. ALL QUESTIONS AND CONCERNS ADRESSED. WILL CONTINUE TO MONITOR.
--- NOTE | 2019-04-06 08:15 | NUR ---
PT SITTING IN CHAIR EATING BREAKFAST. TOLERATED WELL ATE 100%. NO PAIN OR NAUSEA NOTED ATTHIS TIME. WILL CONTINUE TO MONITOR.
--- NOTE | 2019-04-06 08:15 | NUR ---
IVF D5NS IS RUNNING AT 100 CC/HR VIA IV SITE AT L AC.
[2019-04-06 08:57] VITALS: BP 113/64
--- NOTE | 2019-04-06 09:21 | NUR ---
PT LYING IN BED WATCHING TV. DENIES ANY PAIN. INSTRUCTED TO USE CALL LIGHT. BED IN LOW POSITION.
--- NOTE | 2019-04-06 10:48 | NUR ---
pt lying in bed sleeping. in no apparent distress. will continue to monitor.
[2019-04-06 10:57] VITALS: BP 113/64
[2019-04-06 10:58] VITALS: BP 113/64
[2019-04-06 11:09] VITALS: BP 113/64
--- NOTE | 2019-04-06 11:50 | NUR ---
DC HOME INSTRUCTION GIVEN TO PT. PT VERBALIZED UNDERSTANDING. REMOVED IV ON LAC WITH CATHETER INTACT. ADVISED PT TO HAVE SOMEONE PICK HIM UP. PT INSISTED ON DRIVING HOME BY HIMSELF. PT STATED " IM OK. I HAVEN'T HAD ANY MEDICATION THAT CAUSES ME TO BE DROWSY."
--- NOTE | 2019-04-06 12:05 | NUR ---
PT HAS BEEN DISCHARGED IN STABLE CONDITION. ALL BELONGING SENT HOME WITH PT UPON DISCHARGE. ALL QUESTIONS AND CONCERNS ADDRESSED.
== END 2019-04-06 12:05 | disposition home or self-care (01) | DRG 247 ==
LOC: ED 10:05 → MU 13:05
PROVIDERS: Emergency Medicine; ADMIT Internal Medicine
DX: K56.7 Ileus, unspecified (principal); Z68.25 Body mass index [BMI] 25.0-25.9, adult
CPT/HCPCS: G0378; J2270; J2405; J3490; J7030; J7042